=== PATIENT | female | born 1995 | race Caucasian/White ===

== ENCOUNTER 2017-06-11 17:17 | Emergency (ER) | payer OTHER ==
[2017-06-11 17:29] LABS: BASOPHIL COUNT 0.1 K/uL (0-0.1); EOSINOPHIL (%) 3.8 % (0-5); EOSINOPHIL COUNT 0.2 K/uL (0-0.3); HEMATOCRIT 36.9 % (36.0-46.0); IMMATURE GRANULOCYTE (%) 0.2 % (0.0-0.7); INSTRUMENT ABS NEUTROPHIL CT 2.3 K/uL; LYMPHOCYTE COUNT 1.7 K/uL (1.0-2.8); MCHC 33.9 G/DL (30.0-36.0); MCV 88.7 FL (83-99); MEAN PLAT.VOLUME 10.2 uM^3 (9.5-12.4); MONOCYTE (%) 8.8 % (3-12); MONOCYTE COUNT 0.4 K/uL (0-0.8); NEUTROPHIL (%) 49.1 % (45-76); NEUTROPHIL COUNT 2.3 K/uL (1.8-6.4); PLATELET COUNT 295 K/uL (156-360); RBC DIS.WIDTH-CV 11.9 % (11.8-14.6); RBC DIS.WIDTH-SD 38.3 % (39-53); RED BLOOD COUNT 4.16 M/uL (3.80-5.20); WHITE BLOOD COUNT 4.8 K/uL (4.1-10.2)
[2017-06-11 17:37] LABS: AMYLASE 51 IU/L (1-118); CHLORIDE 105 mEq/L (99-109); POTASSIUM 3.9 mEq/L (3.7-5.4); SODIUM 139 mEq/L (136-147)
[2017-06-11 17:39] LABS: GLUCOSE 94 mg/dL (70-99)
[2017-06-11 17:40] LABS: ANION GAP 9 MEQ/L (2-14)
[2017-06-11 17:42] LABS: SERUM ETHYL ALCOHOL < 10 mg/dL
[2017-06-11 17:43] LABS: UREA NITROGEN (BUN) 9 mg/dL (9-23)
[2017-06-11 17:45] LABS: LIPASE 11 U/L (1.0-51.0)
[2017-06-11 17:49] LABS: GFR ESTIMATE (CALCULATED) > 59 mL/min/
[2017-06-11 17:51] LABS: QUANTITATIVE HCG < 4.0 MIU/ML
[2017-06-11] MEDS ORDERED: NAPROSYN500 MG PO (18:53)
== END 2017-06-11 19:14 | disposition home or self-care (01) ==
LOC: TRA 17:17
PROVIDERS: Emergency Medicine
DX: M54.2 Cervicalgia (principal); V48.9XXA Unspecified car occupant injured in noncollision transport accident in traffic accident, initial encounter
CPT/HCPCS: 70450; 72125; 73000; 73030; 80048; 81003; 82150; 83690; 84702; 85025; 86850; 86900; 86901; 99281; 99285; G0480